=== PATIENT | male | born 1975 | race Caucasian/White ===

== ENCOUNTER 2016-08-07 22:22 | Inpatient (IN) | payer MEDICARE ==
[~2016-08-07] VITALS: Ht 170.2 cm; Wt 73.9 kg
[2016-08-07 22:52] LABS: BASOPHILS % (AUTO) 0.7 % (0.0-2.0); HEMATOCRIT 40.6 % (41-53); HEMOGLOBIN 13.8 g/dL (13.5-17.5); LYMPHOCYTES # (AUTO) 2.2 K/uL (1.0-4.8); LYMPHOCYTES % (AUTO) 30.6 % (22.0-44.0); MEAN CORPUSCULAR HEMOGLOBIN 32.3 pg (26.0-34.0); MEAN CORPUSCULAR HGB CONC 33.9 G/dL (31.0-37.0); MEAN CORPUSCULAR VOLUME 95 fL (80-100); MONOCYTES # (AUTO) 0.6 K/uL (0.1-1.0); MONOCYTES % (AUTO) 8.5 % (2.0-9.0); NEUTROPHILS # (AUTO) 4.1 K/uL (1.8-7.7); NEUTROPHILS % (AUTO) 57.2 % (40.0-70.0); PLATELET COUNT (AUTO) 243 K/uL (150-450); RED BLOOD CELL COUNT(AUTO) 4.27 MIL/uL (4.50-5.90); RED CELL DISTRIBUTION WIDTH 14.6 % (11.5-14.5); WHITE BLOOD COUNT (AUTO) 7.2 K/uL (4.5-11.0)
[2016-08-07 22:57] LABS: ANION GAP 10 mmol/L (8-16); CALCIUM, TOTAL 9.7 mg/dL (8.8-10.5); CARBON DIOXIDE 25 mmol/L (22-29); CHLORIDE 106 mmol/L (98-107); CREATININE 1.52 mg/dL (0.60-1.30); GLOMERULAR FILTR. RATE CALC 51 mL/min (>60); SODIUM SERUM 141 mmol/L (136-145); UREA NITROGEN, BLOOD 19 mg/dL (7-18)
[2016-08-07 23:03] LABS: ALANINE AMINOTRANSFERASE 20 U/L (12-78); ALBUMIN 4.2 g/dL (3.4-5.0); ASPARTATE AMINOTRANSFERASE 29 U/L (15-37); BILIRUBIN,TOTAL 0.6 mg/dL (0.1-1.0); TOTAL PROTEIN, SERUM 8.7 g/dL (6.4-8.2)
[2016-08-07] MEDS ORDERED: ZOLPIDEM TARTRATE 10 MG TABLET PO PRN (23:45)
[2016-08-07] MEDS ORDERED: HALOPERIDOL 5 MG TABLET PO PRN (23:45)
[2016-08-08] MEDS: LORazepam 2 MG TABLET PO PRN ×4 (00:47→17:29)
[2016-08-08 01:53] VITALS: BP 120/79
[2016-08-08 08:00] VITALS: BP 122/74
[2016-08-08] MEDS: DOLUTEGRAVIR SODIUM 50 MG TABLET PO SCH (11:48)
[2016-08-08] MEDS: ValACYclovir HCL 500 MG TABLET PO SCH (11:50)
[2016-08-08] MEDS: PAROXETINE HCL 12.5 MG PO SCH (11:51)
[2016-08-08] MEDS: BuPROPion HCL XL 150 MG ER TABLET PO SCH (11:51)
[2016-08-08] MEDS: DENTURE ADHESIVE 68 GM CREAM DT PRN (11:52)
[2016-08-08] MEDS: QUEtiapine FUMARATE 25 MG TABLET PO SCH (12:03)
[2016-08-08] MEDS ORDERED: LOPERAMIDE HCL 2 MG CAPSULE PO PRN (14:15)
[2016-08-08] MEDS ORDERED: ONDANSETRON HCL 4 MG TABLET PO PRN (14:15)
[2016-08-08] MEDS ORDERED: BENZOCAINE/MENTHOL LOZENGE [8 LOZENGES/PACKET] MM PRN (14:15)
[2016-08-08] MEDS ORDERED: PETROLATUM,WHITE 71 GM JELLY TP PRN (14:15)
[2016-08-08] MEDS ORDERED: IBUPROFEN 600 MG TABLET PO PRN (14:15)
[2016-08-08] MEDS ORDERED: ALBUTEROL SULFATE HFA 90 MCG/PUFF 8 GM INHALER IH PRN (14:15)
[2016-08-08] MEDS ORDERED: BACITRACIN 28.4 GM OINTMENT TP PRN (14:15)
[2016-08-08] MEDS ORDERED: MAGNESIUM HYDROXIDE SUSPENSION 30 ML UDCUP PO PRN (14:15)
[2016-08-08] MEDS ORDERED: CloNIDine HCL 0.1 MG TABLET PO PRN (14:15)
[2016-08-08] MEDS ORDERED: MAG HYDROX/AL HYDROX/SIMETH ES 30 ML SUSPENSION UDCUP PO PRN (14:15)
[2016-08-08] MEDS ORDERED: ACETAMINOPHEN 325 MG TABLET PO PRN (14:15)
[2016-08-08] MEDS ORDERED: TraMADol HCL 50 MG TABLET PO PRN (14:30)
[2016-08-08] MEDS: TOPIRAMATE 100 MG TABLET PO SCH (16:49)
[2016-08-08 16:55] VITALS: BP 126/80
[2016-08-08 19:25] VITALS: BP 113/71
[2016-08-08] MEDS: QUEtiapine FUMARATE 100 MG TABLET PO SCH (20:04)
[2016-08-09 06:39] LABS: ANION GAP 9 mmol/L (8-16); CALCIUM, TOTAL 8.8 mg/dL (8.8-10.5); CARBON DIOXIDE 24 mmol/L (22-29); CHLORIDE 108 mmol/L (98-107); CHOL/HDL RATIO 3.7 (4.2-7.3); CREATININE 1.26 mg/dL (0.60-1.30); GLOMERULAR FILTR. RATE CALC > 60 mL/min (>60); POTASSIUM 3.8 mmol/L (3.5-5.1); SODIUM SERUM 141 mmol/L (136-145); THYROID STIMULATING HORMONE 2.66 uIU/mL (0.36-3.74); UREA NITROGEN, BLOOD 18 mg/dL (7-18)
[2016-08-09] MEDS: DENTURE ADHESIVE 68 GM CREAM DT PRN (07:03)
[2016-08-09 08:15] VITALS: BP 122/73
[2016-08-09] MEDS: DOLUTEGRAVIR SODIUM 50 MG TABLET PO SCH (08:36)
[2016-08-09] MEDS: TOPIRAMATE 100 MG TABLET PO SCH ×2 (08:36→16:07)
[2016-08-09] MEDS: BuPROPion HCL XL 150 MG ER TABLET PO SCH (08:36)
[2016-08-09] MEDS: QUEtiapine FUMARATE 25 MG TABLET PO SCH ×2 (08:36→12:25)
[2016-08-09] MEDS: NALTREXONE HCL 50 MG TABLET PO SCH (08:37)
[2016-08-09] MEDS: ValACYclovir HCL 500 MG TABLET PO SCH (08:37)
[2016-08-09] MEDS: PAROXETINE HCL 12.5 MG PO SCH (08:38)
[2016-08-09 18:28] VITALS: BP 122/74
[2016-08-09] MEDS: QUEtiapine FUMARATE 100 MG TABLET PO SCH (20:15)
[2016-08-10 08:15] VITALS: BP 123/77
[2016-08-10] MEDS: ValACYclovir HCL 500 MG TABLET PO SCH (09:26)
[2016-08-10] MEDS: TOPIRAMATE 100 MG TABLET PO SCH (09:26)
[2016-08-10] MEDS: PAROXETINE HCL 12.5 MG PO SCH (09:27)
[2016-08-10] MEDS: DOLUTEGRAVIR SODIUM 50 MG TABLET PO SCH (09:27)
[2016-08-10] MEDS: BuPROPion HCL XL 150 MG ER TABLET PO SCH (09:27)
[2016-08-10] MEDS: QUEtiapine FUMARATE 25 MG TABLET PO SCH ×2 (09:29→11:53)
[2016-08-10] MEDS: NALTREXONE HCL 50 MG TABLET PO SCH (09:29)
[2016-08-10] MEDS ORDERED: BUPR-93 PO (12:19)
[2016-08-10] MEDS ORDERED: QUET25TA PO ×2 (12:20→12:21)
[2016-08-10] MEDS ORDERED: PARO10TA89 PO (12:20)
[2016-08-10] MEDS ORDERED: QUET100T PO (12:21)
[2016-08-10] MEDS ORDERED: TOPI100 PO (12:22)
[2016-08-10] MEDS ORDERED: VALA500T38 PO (12:23)
[2016-08-10] MEDS ORDERED: NALT50TA10 PO (12:24)
[2016-08-10] MEDS ORDERED: DOLU50TA PO (12:25)
== END 2016-08-10 13:15 | disposition home or self-care (01) | DRG 885 ==
LOC: EMS 22:24 → 3EC 08-08 00:41
DX: F31.4 Bipolar disorder, current episode depressed, severe, without psychotic features (principal); R45.851 Suicidal ideations; N17.9 Acute kidney failure, unspecified; F41.9 Anxiety disorder, unspecified; F43.10 Post-traumatic stress disorder, unspecified; S93.402A Sprain of unspecified ligament of left ankle, initial encounter; K59.00 Constipation, unspecified; K21.9 Gastro-esophageal reflux disease without esophagitis; G47.00 Insomnia, unspecified; G40.909 Epilepsy, unspecified, not intractable, without status epilepticus; B18.2 Chronic viral hepatitis C; C14.0 Malignant neoplasm of pharynx, unspecified; F17.210 Nicotine dependence, cigarettes, uncomplicated; Z90.49 Acquired absence of other specified parts of digestive tract; Z98.890 Other specified postprocedural states; Z71.6 Tobacco abuse counseling; Z20.6 Contact with and (suspected) exposure to human immunodeficiency virus [HIV]; Z91.5 Personal history of self-harm; W01.0XXA Fall on same level from slipping, tripping and stumbling without subsequent striking against object, initial encounter; Y93.89 Activity, other specified; Y92.89 Other specified places as the place of occurrence of the external cause; Y99.8 Other external cause status
CPT/HCPCS: 82306; 84443; 99285; G0480; J3535